=== PATIENT | female | born 1965 | race Native Hawaiian/Other Pacific Islander ===

== ENCOUNTER 2022-06-03 14:09 | Emergency (ER) | payer BC ==
[~2022-06-03] VITALS: Ht 162.6 cm; Wt 74.8 kg
[2022-06-03 14:15] VITALS: BP 98/76; TEMP 97
== END 2022-06-03 16:51 | disposition home or self-care (01) ==
LOC: ED 14:09
DX: T17.298A Other foreign object in pharynx causing other injury, initial encounter (principal); X58.XXXA Exposure to other specified factors, initial encounter; Y92.511 Restaurant or cafe as the place of occurrence of the external cause
CPT/HCPCS: 99283